=== PATIENT | female | born 1960 | race Caucasian/White ===

== ENCOUNTER → 2018-07-12 | Outpatient (CLI) | payer OTHER ==
--- NOTE | 2018-07-13 07:56 | MM ---
Reason for exam: screening (asymptomatic). Last mammogram was performed 2 years and 11 months ago. History: Patient is postmenopausal. Family history of breast cancer in paternal aunt. Physical Findings: A clinical breast exam by your physician is recommended on an annual basis and results should be correlated with mammographic findings. MG Screening Mammo w CAD Bilateral CC and MLO view(s) were taken. Prior study comparison: August 04, 2015, bilateral MG screening mammo w CAD. May 07, 2014, mammogram, performed at [place]. There are scattered fibroglandular densities. There is no discrete abnormality. No significant changes when compared with prior studies. ASSESSMENT: Negative, BI-RAD 1 RECOMMENDATION: Routine screening mammogram of both breasts in 1 year.
== END | disposition home or self-care (01) ==
LOC: RADMAMWWP 12:34
PROVIDERS: ATTEND Family Medicine
DX: Z12.31 Encounter for screening mammogram for malignant neoplasm of breast (principal)
CPT/HCPCS: 77067

== ENCOUNTER → 2018-10-30 | Day surgery (SDC) | payer OTHER ==
[2018-10-24 16:16] VITALS: BMI 34.9
[~2018-10-30] MED LIST: LACTATED RINGERS 1,000 ML IV SCH
== END ==
LOC: ORWHC2ENDO 12:10
DX: Z53.9 Procedure and treatment not carried out, unspecified reason (principal)

== ENCOUNTER → 2018-11-21 | Outpatient (CLI) | payer OTHER ==
--- NOTE | 2018-11-21 10:44 | MR ---
EXAMINATION TYPE: MR iac wo/w con DATE OF EXAM: 11/21/2018 COMPARISON: None HISTORY: Aysmmetrical Hearing Loss Rt Ear TECHNIQUE: Multiplanar, multisequence images of the brain and brainstem is performed without and with IV contras t, utilizing 11 mL intravenous Gadavist . FINDINGS: Diffusion weighted images demonstrate no evidence of a recent infarct or other diffusion ab normality. There are multiple areas of abnormal signal the white matter which are nonspecific. Partia lly empty sella turcica noted. Craniocervical junction maintained. Post contrast images demonstrate no abnormal enhancement. The dural venous sinuses appear patent. Th e visualized sinuses are clear and the globes are intact. There is no cerebellopontine angle mass. No pathologic enhancement seen. Very mild signal within the right mastoid air cells May represent a degree of chronic mild right mastoiditis. Abnormal signal in the left cerebellum may be artifactual rather than representing tiny lacunar infar ctions. Changes of chronic sinusitis noted. Area of abnormal signal involving the santo may likely in the basis of tiny area of remote ischemia. IMPRESSION: 1. No enhancing mass or cerebellopontine angle mass. 2. Findings suggest very mild chronic mastoiditis. 3. Chronic sinusitis. 4. Nonspecific white matter findings most typical remote microvascular ischemia. 5. Partially empty sella turcica. 6. There is mild prominence the prepontine cistern which may represent a prominent CSF space. Small a rachnoid cyst would not be excluded. Recommend a follow-up in 6 months to confirm stability. No defin ite mass effect.
== END | disposition home or self-care (01) ==
LOC: RADMRIMAIN 08:59
PROVIDERS: ATTEND Otolaryngology Otolaryngic Allergy
DX: I67.82 Cerebral ischemia (principal)
CPT/HCPCS: 70553; A9585

== ENCOUNTER → 2020-04-14 | Outpatient (CLI) | payer OTHER ==
--- NOTE | 2020-04-14 10:27 | XR ---
EXAMINATION TYPE: XR wrist complete LT DATE OF EXAM: 04/14/2020 COMPARISON: NONE HISTORY: Pain TECHNIQUE: Four views submitted. FINDINGS: The osseous structures are intact. The joint spaces are preserved and there is no acute fracture or dislocation. Diffuse osteopenia. IMPRESSION: 1. No definite acute fracture or dislocation if symptoms persist, follow-up study in 7 to 10 days wo uld be suggested
== END | disposition home or self-care (01) ==
LOC: RADXRYALE 10:03
PROVIDERS: ATTEND Physician Assistant
DX: M25.532 Pain in left wrist (principal)

== ENCOUNTER → 2023-12-12 | Outpatient (CLI) | payer OTHER ==
--- NOTE | 2023-12-12 10:21 | XR ---
EXAMINATION TYPE: XR knee complete LT DATE OF EXAM: 12/12/2023 COMPARISON: NONE HISTORY: Pain TECHNIQUE: Three views are submitted. FINDINGS: There is mild narrowing of the tricompartment joint spaces with marginal spurring. Small amount of fl uid in the suprapatellar bursa. Mild osteopenia.. Osseous structures are intact. No acute fracture seen. IMPRESSION: 1. Mild osteoarthritis. 2. Small amount of fluid in the suprapatellar bursa can be associated with internal derangement of th e knee.
== END ==
LOC: RADXRYALE 09:50
PROVIDERS: ATTEND Physician Assistant
DX: M17.12 Unilateral primary osteoarthritis, left knee (principal); M23.92 Unspecified internal derangement of left knee